=== PATIENT | female | born 1985 | race Caucasian/White ===

== ENCOUNTER 2024-09-24 08:00 | Emergency (ER) | payer OTHER, SELFPAY ==
[2024-09-24 08:01] VITALS: BP 132/74
--- NOTE | 2024-09-24 08:45 | ED.GENMED ---
History of Present Illness
General
Chief Complaint: Back Pain
Source: patient
Time Seen by Provider: 09/24/24 08:38
History of Present Illness
History of Present Illness:
39yoF with a history of kidney stones presenting for evaluation of right flank pain. She reports a sudden onset of R flank pain yesterday afternoon. Pain was initially severe but did improve with ibuprofen. She also reports nausea but denies any
vomiting. She woke up again this morning with pain so decided to come to the ED. She has a history of kidney stones in the past. She denies any fevers, chills, shortness of breath, dysuria, hematuria. Bowel movements are normal.
Past History
Past History
ED Past Medical History: Psychiatric (ADHD, bipolar disorder)
ED Past Surgical History:
Social History
Tobacco: Non-smoker
Alcohol: Occasional
Drug: Former user and Marijuana
Personal: Single
Employment: Employed (Works as a formal waiter/waitress)
Phy Exam
General Physical Exam
General Presentation: well appearing and no apparent distress
General age: appears stated age
General Skin: warm and dry
General Habitus: normal
General Mental: alert
ENT Exam
ENT Exam: normocephalic
Cardiovascular Exam
Cardiovascular Exam: tachycardia
Pulmonary Exam
Pulmonary Exam: lungs clear, no respiratory distress, no crackles and no wheezing
Gastrointestinal Exam
Gastrointestinal Exam: soft, non distended, cva tenderness and other (+R CVA tenderness. There is tenderness to the R flank upon palpation of the abdomen. Abdomen soft, non-distended. No rebound or guarding. )
Kulwant Coma Scale
Eye Opening: Spontaneous
Verbal Response: Oriented
Motor Response: Obeys Commands
GCS Total Score: 15
Skin Exam
Skin Exam: normal color and warm/dry
Psychiatric Exam
Psychiatric Exam: normal mood/affect
Course
Orders/Labs/Results
Orders:
Orders
09/24/24 08:46
0.9% Sodium Chloride 500 ml [Nss] 500 ml IV BOLUS
Test Result ONCE
09/24/24 09:00
Complete Blood Count/With Diff Urgent
Comprehensive Metabolic Panel Urgent
HCG, Serum Qualitative Screen Urgent
Lipase Urgent
09/24/24 09:54
CT Abd/pelvis W Iv Cont Urgent
Comment:
Reason For Exam: R flank pain
09/24/24 10:04
Urinalysis Reflex To Culture Urgent
Date Specimen was Collected: 09/24/24
Time Specimen was Collected: 10:03
Urine Microscopic Reflex Cult Urgent
Urine Culture Urgent
MAYA Source: U
Specimen Description:
Date Specimen was Collected: 09/24/24
Time Specimen was Collected: 10:03
09/24/24 10:43
Pelvis & Transvaginal US [US Pelvis W Transvag Combined] Urgent
Comment:
Reason For Exam: R sided pain, abnormal CT
09/24/24 11:46
CefTRIAXone [Rocephin] 1,000 mg IV NOW STA
Ketorolac [Toradol] 15 mg IV NOW STA
Abnormal Lab Results
09/24/24 09/24/24
09:00 10:04
WBC 17.0 H 10^3/uL
(4.8-10.8)
Abs Immat Gran (auto) 0.1 H 10^3/uL
(0-0.05)
Absolute Neuts (auto) 15.7 H 10^3/uL
(1.4-6.5)
Absolute Lymphs (auto) 0.5 L 10^3/uL
(1.2-3.4)
Neutrophils % 92.3 H %
(42.2-75.2)
Lymphocytes % 2.7 L %
(20.5-51.1)
Glucose 105 H mg/dl
(70-99)
Total Bilirubin 2.5 H mg/dl
(0.2-1.3)
Ur Occult Blood Reflex 3+ A
(Negative)
Urine Nitrite (Reflex) Positive A
(Negative)
Leukocyte Esterase Rfl 2+ A
(Negative)
Urine RBC 3-6 A /HPF
(0-2)
Urine WBC (Reflex) >100 A /HPF
(0-5)
Urine Bacteria (Reflex) Many A
(Negative)
Urine Albumin (Reflex) 2+ A
(Neg - Trace)
09/24/24 09:00
09/24/24 09:00
Vital Signs
Initial and Last Documented VS:
Initial Vital Signs
Temp Pulse Resp BP Pulse Ox
98.4 F 116 16 132/74 98
09/24/24 08:01 09/24/24 08:01 09/24/24 08:01 09/24/24 08:01 09/24/24 08:01
Last Documented Vital Signs
Temp Pulse Resp BP Pulse Ox
98.5 F 112 16 105/68 99
09/24/24 13:42 09/24/24 13:42 09/24/24 13:42 09/24/24 14:00 09/24/24 14:30
MDM/Problems Addressed
Differential Diagnosis Includes:
39yoF here with R flank pain that began last night. +Nausea. No urinary symptoms. Hx of kidney stones. HR 116 in triage. Remainder of vitals are normal. She is well appearing in no distress. +R CVA tenderness on exam. Differential diagnosis
includes but is not limited to: Kidney stone, pyelonephritis, UTI, biliary colic
Initial ED plan: Check abdominal labs, hCG, UA, and CT abdomen. She declines analgesics. IV fluid bolus.
*Critical Care Note
Total Time (30-74mins, 75-104mins- exclusive of procedures): Not Applicable
Update Note
Update Note:
Labs reveal a leukocytosis with a WBC of 17. UA is nitrite positive with >100 80WBC consistent with a UTI. CT doesn't show any ureteral stones and renal excretion is symmetric. There is a possible ruptured R ovarian cyst noted on CT. Pelvic
ultrasound added which shows a slightly complex R ovarian cyst measuring 1.2cm. She has no anterior abdominal pain. Suspect symptoms are 2/2 to pyelonephritis. Dose of IV Rocephin ordered. Offered admission to patient which she declines. She was
started on a course of cefdinir. Advised close f/u with PCP and strict ED return precautions discussed. Patient expressed understanding and is agreeable to plan. She was discharged in stable condition.
ED Attending Note
-
Portions of this chart may have been created with voice recognition software.� Occasional wrong word or��sound alike� substitutions may have occurred due to the inherent limitations of voice recognition software.
Discharge Plan
Departure
Patient Disposition: Home (Routine Discharge)
Date of Disposition: 09/24/24
Time of Disposition: 14:21
Patient with high blood pressure during this ER visit?: No
Discharge Problem:
Pyelonephritis
Instructions: Urinary tract infections in adults
Prescriptions:
New
cefdinir 300 mg capsule
300 mg PO BID Qty: 14 0RF
No Action
Epidiolex 1 UNIT solution
1 unit PO Daily
Patient Comments:
Patient smokes medical marijuana daily for chronic pain.
Referrals:
UNKNOWN - PT DOES,NOT KNOW [Family Provider] -
Activity Restrictions/Additional Instructions:
Take antibiotics as prescribed. Drink plenty of fluids and hydrate.
Please call on Thursday to schedule a follow-up with your family doctor. Return to the ER immediately with any worsening symptoms, fevers, or if you do not improve in 72 hours.
Interventions
Interventions:
*Risk Screen - Suicide Last Done: 09/24/24 08:01
*General Assessment Last Done: 09/24/24 08:01
*Neglect/Abuse Screening Last Done: 09/24/24 08:01
ED- Fall Risk Assessment Last Done: 09/24/24 14:48
*ED COVID-19 Vaccine History Last Done: 09/24/24 13:49
*Nursing Disposition Last Done: 09/24/24 14:48
ED-Musculoskeletal Assessment Last Done: 09/24/24 09:22
Discharge Date and Time
Discharge Date/Time: 09/24/24 14:49
Print Language: ARMENIAN
[2024-09-24] MEDS: NSS 500 IV (09:07)
[2024-09-24 09:08] VITALS: BMI 22.2
[2024-09-24 09:09] VITALS: BP 103/62
[2024-09-24 09:15] LABS: % Basophils 0.5 % (0-2); % Eosinophils 0.4 % (0-6); % Immature Granulocytes 0.5 % (0-0.5); % Lymphocytes 2.7 % (20.5-51.1); % Monocytes 3.6 % (1.7-9.3); % Neutrophils 92.3 % (42.2-75.2); Absolute Basophils 0.1 10^3/uL (0-0.2); Absolute Eosinophils 0.1 10^3/uL (0-0.7); Absolute Immature Granulocytes 0.1 10^3/uL (0-0.05); Absolute Lymphocytes 0.5 10^3/uL (1.2-3.4); Absolute Monocytes 0.6 10^3/uL (0.1-0.6); Absolute Neutrophils 15.7 10^3/uL (1.4-6.5); Hematocrit 38.2 % (37.0-47.0); Hemoglobin 13.1 g/dL (12.0-16.0); Mean Corp Hgb Conc. 34.3 g/dL (33.0-37.0); Mean Corpuscular Hgb 30.8 pg (27.0-31.0); Mean Corpuscular Volume 89.7 fL (81.0-99.0); Mean Platelet Volume 9.9 fL (7.4-10.4); Nucleated Red Blood Cells % 0 %; Platelet Count 280 10^3/uL (130-400); Red Blood Cell Count 4.26 10^6/uL (4.20-5.40); Red Cell Dist. Width 12.3 % (11.5-14.5)
[2024-09-24 09:28] LABS: HCG, Serum Qualitative Screen Negative
[2024-09-24 09:30] LABS: ALT (SGPT) 24 U/L (0-35); AST (SGOT) 27 U/L (14-36); Albumin 4.2 g/dl (3.5-5.0); Alkaline Phosphatase 66 U/L (38-126); Blood Urea Nitrogen 15 mg/dl (7-17); Calcium 9.5 mg/dl (8.4-10.2); Carbon Dioxide 25 mmol/L (22-30); Chloride 102 mmol/L (98-107); Estimated Creatinine Clearance 86 ml/min; Glucose 105 mg/dl (70-99); Lipase 178 U/L (23-300); Potassium 4.2 mmol/L (3.5-5.1); Sodium 137 mmol/L (135-145); Total Bilirubin 2.5 mg/dl (0.2-1.3); Total Protein 6.8 g/dl (6.3-8.2); eGFR > 60.00
[2024-09-24 10:00] VITALS: BP 105/75
[2024-09-24 10:27] LABS: Urine Albumin 2+ (Neg - Trace); Urine Bilirubin Negative (Negative); Urine Character Slightly Cloudy (Clear); Urine Color Yellow; Urine Glucose Negative (Negative); Urine Ketone Negative (Negative); Urine Leukocyte 2+ (Negative); Urine Nitrite Positive (Negative); Urine Occult Blood 3+ (Negative); Urine Urobilinogen Negative (Neg - 1+)
[2024-09-24 10:59] LABS: Urine Bacteria Many (Negative); Urine White Cell >100 /HPF (0-5)
[2024-09-24 11:43] VITALS: BP 134/78
[2024-09-24] MEDS: ROCEPHIN 1000 MG IV (13:41)
[2024-09-24] MEDS: TORADOL 15 MG IV (13:41)
[2024-09-24 13:43] VITALS: BP 100/60
[2024-09-24 14:00] VITALS: BP 105/68
== END 2024-09-24 14:49 | disposition home or self-care (01) ==
LOC: EMR 08:00
PROVIDERS: Physician Assistant; EMERGENCY PHYSICIAN Emergency Medicine
DX: N10 Acute pyelonephritis (principal); N83.201 Unspecified ovarian cyst, right side; F31.9 Bipolar disorder, unspecified; F90.9 Attention-deficit hyperactivity disorder, unspecified type; Z87.442 Personal history of urinary calculi
CPT/HCPCS: 99285; 96375; 96361 ×2; 96374; 74177; 76830; 76856; 80053; 81003; 81015; 83690; 84703; 85025; 87077; 87086; 87186; Q9967